=== PATIENT | female | born 1990 | race Native Hawaiian/Other Pacific Islander ===

== ENCOUNTER 2016-07-18 11:04 | Outpatient (CLI) | payer BC | END 2016-07-18 19:48 | disposition home or self-care (01) | LOC: INF 11:04 | DX: E86.0 Dehydration (principal) | CPT/HCPCS: 96360; 96361 ==

== ENCOUNTER 2019-11-12 14:43 | Outpatient (CLI) | payer BC | END 2019-11-12 19:39 | disposition home or self-care (01) | LOC: RESP 14:43 | DX: R55 Syncope and collapse (principal) ==